=== PATIENT | female | born 1945 | race Caucasian/White ===

== ENCOUNTER 2018-01-11 12:09 | Inpatient (IN) | payer OTHER ==
[~2018-01-11] VITALS: Ht 149.9 cm; Wt 76.7 kg
[2018-01-11 12:11] VITALS: BP 111/60
[2018-01-11] MEDS ORDERED: BUSPIRONE HCL10 MG PO (12:19)
[2018-01-11] MEDS ORDERED: TOPROL XL25 MG PO (12:19)
[2018-01-11] MEDS ORDERED: XANAX 0.25 MG0.25 MG PO (12:20)
[2018-01-11] MEDS ORDERED: TRAZODONE 150150 M1 PO (12:20)
[2018-01-11] MEDS ORDERED: ZANTAC 150MG T150 MG PO (12:20)
[2018-01-11 14:06] LABS: ABSOLUTE BASOPHILS 0.1 thou/uL (0.0-0.2); ABSOLUTE LYMPHOCYTES 1.9 thou/uL (0.8-5.3); ABSOLUTE MONOCYTES 0.4 thou/uL (0.0-1.2); BASOPHILS 0.9 %; EOSINOPHILS 0.1 %; HEMATOCRIT 40.3 % (37.0-47.0); HEMOGLOBIN 13.5 gm/dL (12.0-15.0); LYMPHOCYTES 25.6 %; MCH 31.7 pg (26.0-34.0); MCHC 33.4 g/dL (28.0-37.0); MCV 95.1 fL (80.0-100.0); MPV 7.7 fl. (7.2-11.1); NUCLEATED RBCS 0 /100WBC; PLATELET COUNT* 193 thou/uL (150-400); POLYS 68.4 %; RBC 4.24 mil/uL (4.20-5.00); RDW-CV 14.2 % (10.5-14.5); WBC 7.3 thou/uL (4.0-11.0)
[2018-01-11 14:14] LABS: CALCIUM 9.4 mg/dL (8.5-10.1); CREATININE 0.8 mg/dL (0.6-1.3); POTASSIUM 3.9 mmol/L (3.5-5.1)
[2018-01-11 14:15] LABS: APTT 25.5 Seconds (25.0-31.3); INR 1.1; PROTIME 10.7 Seconds (9.20-11.50)
[2018-01-11 14:18] LABS: ALBUMIN 3.8 g/dL (3.4-5.0); TOTAL BILIRUBIN 0.4 mg/dL (<0.1-1.0); TOTAL PROTEIN 7.4 g/dL (6.4-8.2)
--- NOTE | 2018-01-11 16:41 | NUR ---
PT RESTING IN BED. ON FULL MONITOR. AWAITING ORTHO ARRIVAL FOR EVAL AND TREATMENT
--- NOTE | 2018-01-11 18:00 | NUR ---
REDUCTION UNSUCESSFUL. SEE PAPER CHARTING.
--- NOTE | 2018-01-11 18:42 | NUR ---
pacu notified that pt is back in dept post ct
--- NOTE | 2018-01-11 18:47 | NUR ---
PT TO PACU VIA CART
[2018-01-11 18:54] VITALS: BP 139/70
[2018-01-11 21:20] VITALS: BP 152/64
--- NOTE | 2018-01-11 23:23 | NUR ---
PATIENT ARRIVED TO UNIT AT 2114 FORM PACU. ALERT AND ORIENTED X 4. VITALS STABLE. LEFT ARM IMMOBILIZER IN PLACE. PAIN CONTROLLED. ORIENTED TO ROOM AND STAFF. EDUCATED ABOUT FALL PREVENTION. CALL LIGHT IN REACH. INSTRUCTED TO CALL FOR ASSISTANCE.
[2018-01-12 00:18] VITALS: BP 155/66
[2018-01-12 04:30] VITALS: BP 134/54
--- NOTE | 2018-01-12 05:09 | NUR ---
PATIENT REMAINS ALERT AND ORIENTED. PAIN CONTROLLED WITH PO MEDICATION. UP SBA TO BSC, VOIDING ADEQUATELY. DENIES NAUSEA. LEFT SHOULDER IMMOBILIZER IN PLACE. PROGRESSING WELL TOWARD DISCHARGE GOALS. HOURLY ROUNDS. BED ALARM IN USE. NURSING WILL CONTINUE TO MONITOR.
[2018-01-12 09:52] VITALS: BP 125/48
--- NOTE | 2018-01-12 11:13 | NUR ---
Pt is A&O. in room at bedside, but is asleep. Pt normally resides at home with her and is independent with ADLs. No DME. Hx of HH after a broken hip, Pt believes she used [facility]. Hx of skilled at [place]. Supportive family that is involved in POC. Pt's goal is to return home at [place], Pt wants HH and would like to use [facility] at [place] p:[phone], f:[phone]. At [place], HH orders for [facility], PT/OT will need to be faxed, along with facesheet, H&P and op report to the above number.
[2018-01-12 16:13] VITALS: BP 130/62
--- NOTE | 2018-01-12 18:13 | NUR ---
ASSUMED CARE OF PATIENT AFTER MORNING REPORT. ALERT AND ORIENTED X4. ASSESSMENT COMPLETED AND CHARTED. VSS ON 3 LITERS 02, TITRATED DOWN TO ROOM AIR. PATIENTS PAIN HAS BEEN MINIMAL AND MANAGED WITH SCHEDULED PAIN MEDICATION. PT AND OT ORDEED FOR PATIENT. RESTING COMFORTABLY IN BED AT THIS TIME. HOURLY ROUNDS MAINTAINED, CALL LIGHT IN REACH, NURSING WILL CONTINUE TO MONITOR.
[2018-01-12 20:30] VITALS: BP 136/61
[2018-01-13 00:30] VITALS: BP 156/66
--- NOTE | 2018-01-13 06:10 | NUR ---
PATIENT HAS SLEPT THROUGHOUT THE NIGHT, RESTLESS AT TIMES. PAIN CONTROLLED WITH ORAL PAIN MEDICATIONS AND CHARTED. PATIENT IS UP WITH ASSIST X 1 TO THE BATHROOM. IMMOBILIZER TO LEFT SHOULDER IN PLACE. PATIENT HAS REMAINED NWB TO LEFT ARM. IV IN RIGHT WRIST-SL. VSS ON 2L 02 VIA NASAL CANNULA. PATIENT INSTRUCTED TO USE CALL LIGHT WHEN NEEDING ASSISTANCE. HOURLY ROUNDS MADE. WILL CONTINUE WITH PLAN OF CARE AND NURSING TO MONITOR.
[2018-01-13 09:30] VITALS: BP 147/64
[2018-01-13 10:36] VITALS: BP 147/64
--- NOTE | 2018-01-13 14:37 | EKG ---
[place] [address] ELECTROCARDIOGRAM REPORT Name: RAMIREZ TOLENTINO Room: [address] IN .R.#: [id number] Admission: 01/11/18 Attend Phys: Cassandra Simpson Discharge: Date of : 49 Report #: [id number] THIS REPORT FOR: //name// [facility] ED Test Date: 2018-01-11 Test Time: 14:11:19 Pat Name: RAMIREZ TOLENTINO Department: Room: Gender: F Roll Hauler: Anabel WREN : 1945 Requested By: Inga Cox Order Number: [id number] MD: Dillon Pepper Measurements Intervals [place] Rate: 55 P: 48 RI: 129 QRS: -34 QRSD: 103 T: 7 QT: 420 QTc: 402 Interpretive Statements Sinus rhythm Left axis deviation No previous ECG available for comparison Electronically Signed On 01-13-2018 14:37:08 CDT by Dillon Pepper [email or web address] <ELECTRONICALLY SIGNED> By: Dillon Pepper MD, [facility] 01/13/18 1437 1411 141 Dillon Pepper MD, FACC /EPI
[2018-01-13] MEDS ORDERED: HYDROCODONE-AP1 EAC6 PO (15:34)
--- NOTE | 2018-01-13 16:00 | NUR ---
ASSUMED CARE OF PATIENT AFTER MORNING REPORT. ALERT AND ORIENTED X4. ASSESSMNT COMPLETED AND CHARTED. VSS ON ROOM AIR. PATIENT PAIN HAS BEEN MANAGED WITH PAIN MEDICATION. NO COMPLAINTS OF NAUSEA OR SOA THIS SHIFT. PT EVALUATED PATIENT AND CLEARED FOR DISCHARGE HOME WITHOUT HOME HEALTH. PATIENT DISCHARGED AT 1550. ALL PERSONAL BELONGINGS, PRESCRIPTIONS, AND DISCHARGE INFORMATION SENT WITH PATIENT UPON DISCHARGE.
--- NOTE | 2018-03-19 10:41 | OP ---
[address] [address] OPERATIVE REPORT Name: RAMIREZ TOLENTINO Room: [address] IN M.R.#: [id number] Admission: 01/11/18 Attend Phys: Cassandra Simpson Discharge: 01/13/18 Date of : 49 Report #: [id number] THIS REPORT FOR: //name// CC: Sly Phillips PREOPERATIVE DIAGNOSIS: Fracture dislocation of the proximal humerus irreducible in the Emergency Department. POSTOPERATIVE DIAGNOSIS: Fracture dislocation of the proximal humerus irreducible in the Emergency Department. PROCEDURE: Closed reduction and immobilization of fracture dislocation of the left proximal humerus. SURGEON: Eric Bean DO ASSISTANTS: 1. Bradly Andujar DO 2. Sridhar Watt DO ANESTHESIA: General. ANTIBIOTICS: None. SPECIMENS: None. DRAINS: None. CONDITION: The patient is stable to PACU. IMPLANTS: None. INDICATION FOR PROCEDURE: The patient is a 72-year-old female who sustained a fracture dislocation of her proximal humerus. Attempts were made in the ED for reduction, they were unsuccessful. CT scan showed fracture of the humeral head as well as the greater tuberosity and likely lesser tuberosity. I had a long conversation with her as well as her in regards to the risks and complications associated with surgery. They acknowledged and accepted those risks and they did wish to proceed. DESCRIPTION OF PROCEDURE: I asked what extremity was correct, she said the left. I marked that extremity. All team members agreed. She was taken back to the operative suite where a timeout was performed indicating correct patient, procedure, site, antibiotics that were not given and then implants needle were present and sterile. All team members agreed. General anesthetic was administered. Once she was fully paralyzed, we performed a closed reduction [address] [address] OPERATIVE REPORT Name: RAMIREZ TOLENTINO Room: [address] [place] [facility].#: [id number] Admission: 01/11/18 Attend Phys: Cassandra Simpson Discharge: 01/13/18 Date of : 49 Report #: [id number] with C-arm, which showed that we had performed the reduction, brought in a flat plate showing that there is scapular Y and AP showed the glenohumeral joint to be reduced. She was placed in immobilizer, successfully extubated and transferred off the operating table and taken to PACU in stable condition. POSTOPERATIVE COURSE AND EVALUATION: I had a long conversation with her family. Discussed with them that we were able to get a good reduction stable. At 72 years old, I do not feel it is appropriate to perform open reduction and internal fixation of this fracture. She does have a significant fracture of the head itself. I feel that the risks of this going on to nonunion or avascular necrosis is quite high and I feel at her age, she would benefit more from an arthroplasty type situation. They understood this. Thanked me very much for our time and efforts and I made sure they have access to my number as well as the office number and encouraged them to call at any time with questions or concerns. When I went to examine her, she was resting in the PACU, doing well. Sling was in the immobilizer and she was fully neurologically intact distally. She can feel me touching of her deltoid. Compartments soft and compressible. <ELECTRONICALLY SIGNED> By: Eric Bean DO 03/19/18 1041 [id number] Bean DO /nt
== END 2018-01-13 15:50 | disposition home or self-care (01) | DRG 563 ==
LOC: M.SUR 12:09 → M.ERS 12:09 → M.SUR 18:56 → M.ORTHSURG 20:35
PROVIDERS: Physician Assistant; ADMIT Internal Medicine
PROC: 0PSDXZZ Reposition Left Humeral Head, External Approach (ICD-10-PCS; principal; 2018-01-12)
DX: S42.252A Displaced fracture of greater tuberosity of left humerus, initial encounter for closed fracture (principal); F41.9 Anxiety disorder, unspecified; I10 Essential (primary) hypertension; K21.9 Gastro-esophageal reflux disease without esophagitis; W01.198A Fall on same level from slipping, tripping and stumbling with subsequent striking against other object, initial encounter; E66.01 Morbid (severe) obesity due to excess calories; Z68.34 Body mass index [BMI] 34.0-34.9, adult; Y93.89 Activity, other specified; Y92.89 Other specified places as the place of occurrence of the external cause; Y99.8 Other external cause status; Z79.899 Other long term (current) drug therapy